=== PATIENT | male | born 1955 | race Caucasian/White ===

== ENCOUNTER 2018-04-21 06:05 | Day surgery (SDC) | payer OTHER ==
[~2018-04-21] VITALS: Ht 182.9 cm; Wt 100.0 kg
[~2018-04-21 06:05] MED LIST: ASPI81CH PO; ATOR20 PO; DOCU100 PO; ENOX40I SC; HYDMOR2 PO; METO25ER PO; Metoprolol Tart25 MG PO; NAPR220 PO; OMEP20ER PO; Singulair10 MG; XARELTO20 MG PO
== END 2018-04-21 11:00 | disposition home or self-care (01) ==
LOC: MHTC 06:05
DX: R07.9 Chest pain, unspecified (principal); R94.39 Abnormal result of other cardiovascular function study
CPT/HCPCS: 93458; 99152; 99153; C1769; C1894; J1644; J2250; J3010; J7030; Q9967

== ENCOUNTER 2018-04-29 19:23 | Emergency (ER) | payer OTHER ==
[~2018-04-29] VITALS: Ht 188 cm; Wt 99.8 kg
[2018-04-29 19:55] LABS: BASOPHILS ABSOLUTE AUTO 0.03 K/mm3 (0.00-0.23); BASOPHILS PERCENT AUTO 0 % (0-2); EOSINOPHILS ABSOLUTE AUTO 0.07 K/mm3 (0.00-0.68); EOSINOPHILS PERCENT AUTO 1 % (0-6); Hematocrit 41.7 % (37.0-53.0); Hemoglobin 14.8 g/dL (13.5-17.5); IMMATURE GRAN ABSOLUTE AUTO 0.02 K/mm3 (0.00-0.10); IMMATURE GRAN PERCENT AUTO 0 % (0-1); LYMPHOCYTES ABSOLUTE AUTO 2.14 K/mm3 (0.84-5.20); LYMPHOCYTES PERCENT AUTO 30 % (21-46); MONOCYTES ABSOLUTE AUTO 0.33 K/mm3 (0.16-1.47); MONOCYTES PERCENT AUTO 5 % (4-13); Mean Corpuscular HGB 33.9 pg (26.0-34.0); Mean Corpuscular HGB Conc 35.5 g/dL (31.5-36.5); Mean Platelet Volume 10.3 fL (9.1-12.4); NEUTROPHILS ABSOLUTE AUTO 4.64 K/mm3 (1.96-9.15); NEUTROPHILS PERCENT AUTO 64 % (41-73); Platelet Count 229 K/mm3 (150-400); RDW Coefficient Variation 12.6 % (11.7-14.2); RDW Standard Deviation 44.3 fL (35.1-46.3); Red Blood Cell Count 4.37 M/mm3 (4.30-5.90); White Blood Cell Count 7.23 K/mm3 (4.00-11.30)
[2018-04-29 19:56] LABS: Mean Corpuscular Volume 95 fL (80-100)
[2018-04-29 20:24] LABS: Alanine Aminotransfer (ALT/SGP 32 U/L (12-78); Albumin, Blood 4.3 g/dL (3.4-5.0); Albumin/Globulin Ratio 1.2 (0.8-1.8); Alk Phos 80 U/L (50-136); Anion Gap 9 mmol/L (6-16); Aspartate Aminotrans (AST/SGOT 14 U/L (12-37); Blood Urea Nitrogen 11 mg/dL (8-24); Bun/Creatinine Ratio 11.6 (12.0-20.0); CO2, Blood 24 mmol/L (21-32); Chloride, Blood 105 mmol/L (98-108); Creatinine, Blood 0.95 mg/dL (0.60-1.20); Globulin, Blood 3.5 g/dL (2.2-4.0); Glomerular Filtration Rate >60 (60-); Glucose, Blood 135 mg/dL (70-99); Potassium, Blood 3.6 mmol/L (3.5-5.5); Sodium, Blood 138 mmol/L (136-145); Total Protein, Blood 7.8 g/dL (6.4-8.2); Troponin I <0.015 ng/mL (0.000-0.040)
[2018-04-29] MEDS ORDERED: Carafate1 GM/10 ML PO (22:08)
== END 2018-04-29 23:12 | disposition home or self-care (01) ==
LOC: ER 19:23
PROVIDERS: Emergency Medicine
DX: K21.9 Gastro-esophageal reflux disease without esophagitis (principal); Z79.899 Other long term (current) drug therapy; Z79.82 Long term (current) use of aspirin; I48.91 Unspecified atrial fibrillation
CPT/HCPCS: 71046; 76705; 80053; 83690; 83880; 84484; 85025; 93005; 93010; 96374; 99284-25; C9113

== ENCOUNTER → 2018-11-16 | Outpatient (CLI) | payer OTHER ==
[~2018-11-16] MED LIST changes: +Carafate1 GM/10 ML PO; -OMEP20ER PO; +OMEPRAZOLE MAGN20 MG PO
== END | disposition home or self-care (01) ==
LOC: LAB SHORT 15:54 → LAB EV 15:54
DX: R35.0 Frequency of micturition (principal)
CPT/HCPCS: 87086

== ENCOUNTER 2020-06-29 23:22 | Emergency (ER) | payer OTHER ==
[~2020-06-29] VITALS: Ht 188 cm; Wt 99.8 kg
[2020-06-29] MEDS ORDERED: MELOXICAM 15 MG (23:31)
[2020-06-29] MEDS ORDERED: MONT10T (23:31)
[2020-06-30 00:13] LABS: BASOPHILS ABSOLUTE AUTO 0.07 K/mm3 (0.00-0.23); BASOPHILS PERCENT AUTO 1 % (0-2); EOSINOPHILS PERCENT AUTO 2 % (0-6); Hematocrit 41.1 % (37.0-53.0); Hemoglobin 14.7 g/dL (13.5-17.5); IMMATURE GRAN ABSOLUTE AUTO 0.02 K/mm3 (0.00-0.10); IMMATURE GRAN PERCENT AUTO 0 % (0-1); LYMPHOCYTES ABSOLUTE AUTO 2.44 K/mm3 (0.84-5.20); LYMPHOCYTES PERCENT AUTO 26 % (21-46); MONOCYTES ABSOLUTE AUTO 0.64 K/mm3 (0.16-1.47); MONOCYTES PERCENT AUTO 7 % (4-13); Mean Corpuscular HGB 33.3 pg (26.0-34.0); Mean Corpuscular HGB Conc 35.8 g/dL (31.5-36.5); Mean Corpuscular Volume 93 fL (80-100); NEUTROPHILS ABSOLUTE AUTO 5.98 K/mm3 (1.96-9.15); NEUTROPHILS PERCENT AUTO 64 % (41-73); Platelet Count 272 K/mm3 (150-400); RDW Coefficient Variation 12.6 % (11.7-14.2); Red Blood Cell Count 4.42 M/mm3 (4.30-5.90); White Blood Cell Count 9.35 K/mm3 (4.00-11.30)
[2020-06-30 00:31] LABS: Alanine Aminotransfer (ALT/SGP 33 U/L (12-78); Albumin, Blood 3.9 g/dL (3.4-5.0); Albumin/Globulin Ratio 1.1 (0.8-1.8); Alk Phos 86 U/L (50-136); Anion Gap 6 mmol/L (6-16); Aspartate Aminotrans (AST/SGOT 18 U/L (12-37); Bilirubin, Total 0.8 mg/dL (0.1-1.0); Blood Urea Nitrogen 14 mg/dL (8-24); Bun/Creatinine Ratio 13.3 (12.0-20.0); CO2, Blood 27 mmol/L (21-32); Calcium, Blood 9.1 mg/dL (8.5-10.1); Chloride, Blood 106 mmol/L (98-108); Creatinine, Blood 1.05 mg/dL (0.60-1.20); Globulin, Blood 3.5 g/dL (2.2-4.0); Glomerular Filtration Rate >60 (60-); Glucose, Blood 112 mg/dL (70-99); Potassium, Blood 3.7 mmol/L (3.5-5.5); Sodium, Blood 139 mmol/L (136-145); Total Protein, Blood 7.4 g/dL (6.4-8.2); Troponin I <0.015 ng/mL (0.000-0.040)
== END 2020-06-30 02:35 | disposition home or self-care (01) ==
LOC: ER 23:22
PROVIDERS: Emergency Medicine
DX: M19.012 Primary osteoarthritis, left shoulder (principal); Z79.899 Other long term (current) drug therapy
CPT/HCPCS: 71046; 80053; 83690; 83880; 84484; 85025; 93005; 93010; 96374; 96375; 99284-25; A9270; J1885; J2405; J7030

== ENCOUNTER 2021-04-05 06:08 | Day surgery (SDC) | payer OTHER ==
[~2021-04-05] VITALS: Ht 188 cm; Wt 95.9 kg
[~2021-04-05 06:08] MED LIST changes: +MELOXICAM 15 MG; +MONT10T PO
--- NOTE | 2021-04-05 07:19 | NUR ---
ADMITTED TO UNIT REPORT NPO SINCE MIDNIGHT. NO MEDS TAKEN TODAY. LUNGS CLEAR. NO GLASSES AR DENTURES OR PARTIALS NOTED. Ambulatory in Day Surgery, History, Chart, Medications and Allergies reviewed before start of procedure.
[2021-04-05] MEDS ORDERED: OXYC5 PO (14:56)
[2021-04-05] MEDS ORDERED: ASPI81CH PO (14:57)
[2021-04-05] MEDS ORDERED: SULTRIDS PO (14:58)
[2021-04-05] MEDS ORDERED: PROM25 PO (14:59)
--- NOTE | 2021-04-05 18:40 | NUR ---
DISCHARGE ALTHOUGH PT CLEARED THERAPY AFTER ONE SESSION THIS AFTERNOON, HE HAD VOMITED TWICE AT THAT POINT. IVF WERE RESTARTED POST THERAPY SESSION & ALLOWED TO REST IN CHAIR. AFTER A COUPLE HOURS ATTEMPTED BITES OF SALTINES & SIPS OF WATER, BUT 1 HOUR LATER VOMITED THAT. PT WAS ABLE TO VOID & WISHED TO GO HOME DISPITE N/V. MALI HAD BEEN CALLED IN EARLIER TO [facility]. DURING DC INSTRUCTIONS, STRESSED IMPORTANCE OF CALLING DR's OFFICE IF N/V PERSISTS OVERNIGHT DESPITE HAVING AN PPOINTMENT SATURDAY MORNING. POLAR PACK & DRSGS SENT HOME. ESCORTED OUT VIA W/C.
--- NOTE | 2021-04-06 11:01 | NUR ---
04/06/21 1101 Dian Hwang VERIFICATIONS: EDIT CHART.
[2021-04-10] MEDS ORDERED: XARELTO15 MG PO (17:55)
== END 2021-04-05 18:43 | disposition home or self-care (01) ==
LOC: ORSCMMR 06:08 → ORD 07:30 → SURS 10:18 → ORSCMMR 18:43
PROVIDERS: Orthopaedic Surgery
PROC: 8E0YXBZ Computer Assisted Procedure of Lower Extremity (ICD-10-PCS; principal; 2021-04-05 07:30)
PROC: 0SRC0J9 Replacement of Right Knee Joint with Synthetic Substitute, Cemented, Open Approach (ICD-10-PCS; principal; 2021-04-05 07:30)
DX: M17.11 Unilateral primary osteoarthritis, right knee (principal); J45.909 Unspecified asthma, uncomplicated; K21.9 Gastro-esophageal reflux disease without esophagitis; Z79.899 Other long term (current) drug therapy
CPT/HCPCS: 73560-RT; 97110; 97116; 97161; 97530; A9270; C1713; C1776; J0171; J0690; J0735; J1885; J2250; J2370; J2405; J2704; J2765; J2795; J3010; J3370; J7120

== ENCOUNTER → 2022-05-02 | Outpatient (CLI) | payer OTHER ==
[~2022-05-02] MED LIST changes: +OXYC5 PO; +PROM25 PO; +SULTRIDS PO; +XARELTO15 MG PO
[2022-05-02 12:32] LABS: BASOPHILS ABSOLUTE AUTO 0.06 K/mm3 (0.00-0.23); BASOPHILS PERCENT AUTO 1 % (0-2); EOSINOPHILS ABSOLUTE AUTO 0.08 K/mm3 (0.00-0.68); EOSINOPHILS PERCENT AUTO 1 % (0-6); Hematocrit 42.4 % (37.0-53.0); Hemoglobin 15.2 g/dL (13.5-17.5); IMMATURE GRAN ABSOLUTE AUTO 0.01 K/mm3 (0.00-0.10); IMMATURE GRAN PERCENT AUTO 0 % (0-1); LYMPHOCYTES PERCENT AUTO 28 % (21-46); MONOCYTES ABSOLUTE AUTO 0.32 K/mm3 (0.16-1.47); MONOCYTES PERCENT AUTO 5 % (4-13); Mean Corpuscular HGB 33.8 pg (26.0-34.0); Mean Corpuscular HGB Conc 35.8 g/dL (31.5-36.5); Mean Corpuscular Volume 94 fL (80-100); Mean Platelet Volume 9.8 fL (9.1-12.4); NEUTROPHILS ABSOLUTE AUTO 3.86 K/mm3 (1.96-9.15); NEUTROPHILS PERCENT AUTO 64 % (41-73); Platelet Count 258 K/mm3 (150-400); RDW Coefficient Variation 13.1 % (11.7-14.2); RDW Standard Deviation 44.7 fL (35.1-46.3); White Blood Cell Count 6.03 K/mm3 (4.00-11.30)
[2022-05-02 12:55] LABS: Albumin, Blood 4.3 g/dL (3.4-5.0); Albumin/Globulin Ratio 1.2 (0.8-1.8); Bilirubin, Total 0.8 mg/dL (0.1-1.0); Bun/Creatinine Ratio 8.4 (12.0-20.0); Calcium, Blood 9.5 mg/dL (8.5-10.1); Creatinine, Blood 0.95 mg/dL (0.60-1.20); Globulin, Blood 3.7 g/dL (2.2-4.0)
== END | disposition home or self-care (01) ==
LOC: LAB SHORT 12:26 → LAB 12:26
PROVIDERS: Physician Assistant Medical
DX: R07.9 Chest pain, unspecified (principal)
CPT/HCPCS: 80053; 83690; 84484; 85025; 85379

== ENCOUNTER 2023-04-02 10:40 | Day surgery (SDC) | payer OTHER ==
[~2023-04-02] VITALS: Ht 188 cm; Wt 95.3 kg
[2023-04-02 12:55] VITALS: BP 105/72
== END 2023-04-02 12:48 | disposition home or self-care (01) ==
LOC: ORSCSDS 10:40
PROVIDERS: Internal Medicine Gastroenterology
PROC: 0DB78ZX Excision of Stomach, Pylorus, Via Natural or Artificial Opening Endoscopic, Diagnostic (ICD-10-PCS; principal; 2023-04-02 12:00)
PROC: 0DBN8ZX Excision of Sigmoid Colon, Via Natural or Artificial Opening Endoscopic, Diagnostic (ICD-10-PCS; principal; 2023-04-02 12:00)
PROC: 0DB98ZX Excision of Duodenum, Via Natural or Artificial Opening Endoscopic, Diagnostic (ICD-10-PCS; principal; 2023-04-02 12:00)
DX: R10.32 Left lower quadrant pain (principal); R10.13 Epigastric pain; K31.7 Polyp of stomach and duodenum; K63.5 Polyp of colon; K57.30 Diverticulosis of large intestine without perforation or abscess without bleeding; K64.4 Residual hemorrhoidal skin tags; E78.5 Hyperlipidemia, unspecified; N40.0 Benign prostatic hyperplasia without lower urinary tract symptoms; I48.0 Paroxysmal atrial fibrillation
CPT/HCPCS: 88305; 88342; J2704; J7120

== ENCOUNTER 2024-03-14 16:02 | Emergency (ER) | payer OTHER ==
[~2024-03-14] VITALS: Ht 188 cm; Wt 95.2 kg
[2024-03-14 17:16] LABS: BASOPHILS ABSOLUTE AUTO 0.03 K/mm3 (0.00-0.23); BASOPHILS PERCENT AUTO 0 % (0-2); EOSINOPHILS PERCENT AUTO 0 % (0-6); Hematocrit 40.7 % (37.0-53.0); Hemoglobin 14.9 g/dL (13.5-17.5); IMMATURE GRAN ABSOLUTE AUTO 0.08 K/mm3 (0.00-0.10); IMMATURE GRAN PERCENT AUTO 1 % (0-1); LYMPHOCYTES PERCENT AUTO 5 % (21-46); MONOCYTES ABSOLUTE AUTO 0.55 K/mm3 (0.16-1.47); MONOCYTES PERCENT AUTO 4 % (4-13); Mean Corpuscular HGB 33.9 pg (26.0-34.0); Mean Corpuscular HGB Conc 36.6 g/dL (31.5-36.5); Mean Corpuscular Volume 93 fL (80-100); Mean Platelet Volume 10.2 fL (9.1-12.4); NEUTROPHILS ABSOLUTE AUTO 11.68 K/mm3 (1.96-9.15); NEUTROPHILS PERCENT AUTO 90 % (41-73); Platelet Count 185 K/mm3 (150-400); RDW Coefficient Variation 12.7 % (11.7-14.2); RDW Standard Deviation 43.9 fL (35.1-46.3); Red Blood Cell Count 4.39 M/mm3 (4.30-5.90); White Blood Cell Count 12.94 K/mm3 (4.00-11.30)
[2024-03-14 17:37] LABS: Albumin, Blood 3.9 g/dL (3.4-5.0); Bilirubin, Total 1.9 mg/dL (0.1-1.0); Bun/Creatinine Ratio 13.7 (12.0-20.0); Calcium, Blood 9.2 mg/dL (8.5-10.1); Creatinine, Blood 1.02 mg/dL (0.60-1.20); Globulin, Blood 3.8 g/dL (2.2-4.0); Potassium, Blood 3.6 mmol/L (3.5-5.5); Total Protein, Blood 7.7 g/dL (6.4-8.2)
[2024-03-14] MEDS ORDERED: TAMSULOSIN HCL0.4 M1 PO (17:54)
[2024-03-14] MEDS ORDERED: Ondansetron HCl 2 MG / ML 2ML Vial IV ONE (17:55)
[2024-03-14] MEDS ORDERED: NS 1,000 ML IV SCH (17:55)
[2024-03-14] MEDS ORDERED: Ketorolac Tromethamine 30mg Vial IV ONE (17:55)
[2024-03-14 18:35] LABS: Source, Urine Clean Catch
[2024-03-14 18:41] LABS: Appearance, Urine Cloudy (Clear); Bilirubin, Urine Neg (Neg); Blood, Urine 2+ (Neg); Color, Urine Amber (P-Yellow); Glucose Qualitative, Urine Neg (Neg); Ketones, Urine 1+ (Neg); Leukocyte Esterase, Urine 3+ (Neg); Nitrite, Urine Pos (Neg); Protein, Urine 2+ (Neg); Specific Gravity, Urine 1.025 (1.003-1.022); Urobilinogen, Urine NORM (Normal)
[2024-03-14 18:46] LABS: CORONAVIRUS COVID-19 AG Negative (NEGATIVE); INFLUENZA A AG Negative (NEGATIVE); INFLUENZA B AG Negative (NEGATIVE)
[2024-03-14 18:49] LABS: Bacteria Many /hpf; Red Blood Cells, Urine 0-2 /hpf (0-2); Squamous Epithelial Cells Not Seen /hpf (Few); White Blood Cells, Urine 50-100 /hpf (0-5)
[2024-03-14] MEDS ORDERED: AMOCLA875 PO (19:34)
[2024-03-14] MEDS ORDERED: Amoxicillin/Clavulanate K 875 MG Tab PO ONE (19:35)
[2024-03-14 19:58] VITALS: BP 117/58
== END 2024-03-14 19:59 | disposition home or self-care (01) ==
LOC: ER 16:02
PROVIDERS: Physician Assistant
DX: N39.0 Urinary tract infection, site not specified (principal); Z79.899 Other long term (current) drug therapy; Z11.52 Encounter for screening for COVID-19
CPT/HCPCS: 80053; 81001; 85025; 87077; 87086; 87186; 87428-QW; 93005; 93010; 96361; 96374; 99283-25; A9270; J1885; J2405; J7030

== ENCOUNTER → 2024-03-20 | Outpatient (CLI) | payer OTHER ==
[~2024-03-20] MED LIST changes: +AMOCLA875 PO; +BACTRIM DS TAB1 EAC6 PO; +TAMSULOSIN HCL0.4 M1 PO; +VISBIOME 112.51 EACH PO
[2024-03-20 08:15] LABS: BASOPHILS ABSOLUTE AUTO 0.03 K/mm3 (0.00-0.23); BASOPHILS PERCENT AUTO 1 % (0-2); EOSINOPHILS ABSOLUTE AUTO 0.11 K/mm3 (0.00-0.68); EOSINOPHILS PERCENT AUTO 2 % (0-6); Hematocrit 40.3 % (37.0-53.0); Hemoglobin 14.1 g/dL (13.5-17.5); Mean Corpuscular HGB 32.8 pg (26.0-34.0); Mean Corpuscular Volume 94 fL (80-100); Mean Platelet Volume 9.9 fL (9.1-12.4); Platelet Count 234 K/mm3 (150-400); RDW Coefficient Variation 12.9 % (11.7-14.2); RDW Standard Deviation 44.5 fL (35.1-46.3); White Blood Cell Count 6.24 K/mm3 (4.00-11.30)
[2024-03-20 08:25] LABS: Albumin, Blood 3.4 g/dL (3.4-5.0); Albumin/Globulin Ratio 0.8 (0.8-1.8); Bun/Creatinine Ratio 10.4 (12.0-20.0); Calcium, Blood 8.8 mg/dL (8.5-10.1); Creatinine, Blood 1.06 mg/dL (0.60-1.20); Globulin, Blood 4.2 g/dL (2.2-4.0); Potassium, Blood 3.7 mmol/L (3.5-5.5); Total Protein, Blood 7.6 g/dL (6.4-8.2)
[2024-03-20 08:30] LABS: IMMATURE GRAN ABSOLUTE AUTO 0.09 K/mm3 (0.00-0.10); IMMATURE GRAN PERCENT AUTO 1 % (0-1); LYMPHOCYTES ABSOLUTE AUTO 2.14 K/mm3 (0.84-5.20); LYMPHOCYTES PERCENT AUTO 34 % (21-46); MONOCYTES ABSOLUTE AUTO 0.52 K/mm3 (0.16-1.47); MONOCYTES PERCENT AUTO 8 % (4-13); NEUTROPHILS ABSOLUTE AUTO 3.35 K/mm3 (1.96-9.15); NEUTROPHILS PERCENT AUTO 54 % (41-73)
== END ==
LOC: LAB 08:10 → LAB SHORT 08:10
PROVIDERS: Family Medicine
DX: R53.1 Weakness (principal)
CPT/HCPCS: 80053; 85025

== ENCOUNTER 2024-03-29 05:26 | Inpatient (IN) | payer OTHER ==
[~2024-03-29] VITALS: Ht 188 cm; Wt 95.4 kg
[~2024-03-29 05:26] MED LIST changes: -BACTRIM DS TAB1 EAC6 PO; -VISBIOME 112.51 EACH PO
[2024-03-29 07:42] LABS: BASOPHILS ABSOLUTE AUTO 0.06 K/mm3 (0.00-0.23); BASOPHILS PERCENT AUTO 0 % (0-2); EOSINOPHILS ABSOLUTE AUTO 0.01 K/mm3 (0.00-0.68); EOSINOPHILS PERCENT AUTO 0 % (0-6); Hematocrit 42.7 % (37.0-53.0); Hemoglobin 15.3 g/dL (13.5-17.5); IMMATURE GRAN ABSOLUTE AUTO 0.09 K/mm3 (0.00-0.10); IMMATURE GRAN PERCENT AUTO 1 % (0-1); LYMPHOCYTES ABSOLUTE AUTO 1.71 K/mm3 (0.84-5.20); LYMPHOCYTES PERCENT AUTO 9 % (21-46); MONOCYTES ABSOLUTE AUTO 0.81 K/mm3 (0.16-1.47); MONOCYTES PERCENT AUTO 4 % (4-13); Mean Corpuscular HGB Conc 35.8 g/dL (31.5-36.5); Mean Corpuscular Volume 92 fL (80-100); Mean Platelet Volume 9.3 fL (9.1-12.4); NEUTROPHILS ABSOLUTE AUTO 16.63 K/mm3 (1.96-9.15); NEUTROPHILS PERCENT AUTO 86 % (41-73); Platelet Count 436 K/mm3 (150-400); RDW Coefficient Variation 12.7 % (11.7-14.2); RDW Standard Deviation 43.4 fL (35.1-46.3); Red Blood Cell Count 4.63 M/mm3 (4.30-5.90); White Blood Cell Count 19.31 K/mm3 (4.00-11.30)
[2024-03-29] MEDS ORDERED: Lidocaine 2% Jelly Uro-Jet UR ONE (07:45)
[2024-03-29 08:01] LABS: Albumin, Blood 4.2 g/dL (3.4-5.0); Bilirubin, Total 1.2 mg/dL (0.1-1.0); Bun/Creatinine Ratio 15.3 (12.0-20.0); Calcium, Blood 10.1 mg/dL (8.5-10.1); Creatinine, Blood 0.92 mg/dL (0.60-1.20); Globulin, Blood 4.4 g/dL (2.2-4.0); Potassium, Blood 3.9 mmol/L (3.5-5.5); Total Protein, Blood 8.6 g/dL (6.4-8.2)
[2024-03-29 08:20] LABS: Source, Urine Clean Catch
[2024-03-29 08:37] LABS: Appearance, Urine Hazy (Clear); Bilirubin, Urine Neg (Neg); Blood, Urine 5+ (Neg); Color, Urine Yellow (P-Yellow); Glucose Qualitative, Urine Neg (Neg); Ketones, Urine Neg (Neg); Leukocyte Esterase, Urine 2+ (Neg); Nitrite, Urine Pos (Neg); Protein, Urine Neg (Neg); Urobilinogen, Urine NORM (Normal)
[2024-03-29 08:58] LABS: Bacteria Few /hpf; Squamous Epithelial Cells Rare /hpf (Few)
[2024-03-29] MEDS ORDERED: CefTRIAXone Sodium 1,000 MG in NS 100 ML IV ONE (09:40)
[2024-03-29] MEDS ORDERED: FLU VACC TS2024-25(6MOS UP)/PF 45 MCG/0.5 ML SYRINGE IM ONE (12:10)
[2024-03-29] MEDS ORDERED: Ondansetron 4 MG TAB PO PRN (12:15)
[2024-03-29] MEDS ORDERED: NS 1,000 ML IV SCH (15:00)
[2024-03-29 15:36] VITALS: BP 125/73
--- NOTE | 2024-03-29 17:02 | NUR ---
SHIFT SUMMARY: PT ADMITTED TO ROOM 328. REPORT RECEIVED FROM KATTY MOISE. PT ARRIVED VIA GURNEY. HE IS AWAKE A/O X 4 ABLE TO ANSWER QUESTIONS APPROPRIATELY. PLEASANT AND COOPERATIVE. PT REPORTS PAIN 2/10 TO LOWER BACK AND ABD AND REPORTS IT IS TOLERABLE DENIES NEED FOR PAIN MEDICATIONS. YEE CATHETER IN PLACE PATENT AND DRAINING CLEAR YELLOW URINE. PT ORIENTED TO ROOM, CALL LIGHT MEDICAL FLOOR. PT REQUESTED TO CALL FOR ASSISTANCE WITH AMBULATION DUE TO IV LINE AND YEE CATHETER. PT V/U. BED IN LOW POSITION. CALL LIGHT IN REACH. PRESENT. PT/ DENY FURTHER QUESTIONS OR NEEDS.
[2024-03-29] MEDS ORDERED: Tamsulosin HCl 0.4 MG Cap PO SCH ×2 (18:00→21:00)
[2024-03-29 20:39] VITALS: BP 115/66
[2024-03-29] MEDS ORDERED: Montelukast Sodium 10 MG Tab PO SCH (21:00)
[2024-03-30 05:51] LABS: BASOPHILS ABSOLUTE AUTO 0.06 K/mm3 (0.00-0.23); BASOPHILS PERCENT AUTO 1 % (0-2); EOSINOPHILS ABSOLUTE AUTO 0.08 K/mm3 (0.00-0.68); EOSINOPHILS PERCENT AUTO 1 % (0-6); Hematocrit 38.6 % (37.0-53.0); Hemoglobin 13.4 g/dL (13.5-17.5); IMMATURE GRAN ABSOLUTE AUTO 0.03 K/mm3 (0.00-0.10); IMMATURE GRAN PERCENT AUTO 0 % (0-1); LYMPHOCYTES ABSOLUTE AUTO 2.48 K/mm3 (0.84-5.20); LYMPHOCYTES PERCENT AUTO 32 % (21-46); MONOCYTES ABSOLUTE AUTO 0.66 K/mm3 (0.16-1.47); MONOCYTES PERCENT AUTO 8 % (4-13); Mean Corpuscular HGB 33.3 pg (26.0-34.0); Mean Corpuscular HGB Conc 34.7 g/dL (31.5-36.5); Mean Corpuscular Volume 96 fL (80-100); Mean Platelet Volume 9.9 fL (9.1-12.4); NEUTROPHILS ABSOLUTE AUTO 4.52 K/mm3 (1.96-9.15); NEUTROPHILS PERCENT AUTO 58 % (41-73); Platelet Count 324 K/mm3 (150-400); RDW Coefficient Variation 12.9 % (11.7-14.2); RDW Standard Deviation 45.6 fL (35.1-46.3); Red Blood Cell Count 4.03 M/mm3 (4.30-5.90); White Blood Cell Count 7.83 K/mm3 (4.00-11.30)
[2024-03-30] MEDS ORDERED: Omeprazole 20 MG CapCR PO SCH (06:00)
[2024-03-30 06:48] LABS: Albumin, Blood 3.3 g/dL (3.4-5.0); Albumin/Globulin Ratio 0.9 (0.8-1.8); Bilirubin, Total 1.1 mg/dL (0.1-1.0); Bun/Creatinine Ratio 12.2 (12.0-20.0); Calcium, Blood 9.1 mg/dL (8.5-10.1); Creatinine, Blood 0.9 mg/dL (0.60-1.20); Globulin, Blood 3.8 g/dL (2.2-4.0); Magnesium, Blood 2.2 mg/dL (1.6-2.4); Potassium, Blood 4.1 mmol/L (3.5-5.5); Total Protein, Blood 7.1 g/dL (6.4-8.2)
[2024-03-30 07:44] VITALS: BP 115/71
[2024-03-30] MEDS ORDERED: Enoxaparin 40 MG/0.4 ML SYR SC SCH (09:00)
[2024-03-30] MEDS ORDERED: CefTRIAXone Sodium 1,000 MG in NS 100 ML IV SCH (09:00)
[2024-03-30] MEDS ORDERED: Montelukast Sodium 10 MG Tab PO SCH (09:00)
[2024-03-30 16:03] VITALS: BP 112/72
--- NOTE | 2024-03-30 16:56 | NUR ---
SHIFT SUMMARY PT A/Ox4, COOPERATIVE AND PLEASANT. ABLE TO MAKE NEEDS KNOWN, USES CALL LIGHT APPROPRIATELY, AMBULATES INDEPENDENTLY IN ROOM. INDWELLING YEE CATHETER REMAINS PATENT AND DRAINING CLEAR YELLOW URINE. DRAINAGE BAG SWITCHED TO LEG BAG FOR SAFE AMBULATION AND DUE TO PT LIKELY BEING DISCHARGED WITH YEE. PT AND PT SPOUSE EDUCATED RE CARE OF YEE CATHETER, PT AND SPOUSE VERBALIZED UNDERSTANDING ON CLEANING AND MAINTAINING CATHETER. PT COMPLETED CATHETER CARE INDEPENDINGLY AFTER SHOWER WITH CATHETER CLOTHS. PT DENIES PAIN T/O SHIFT. VSS. ABX RECIEVED VIA IV THIS AM. PT CURRENTLY RESTING IN HOSPITAL BED WITH BED IN LOWEST POSITION AND CALL LIGHT WITHIN REACH, SPOUSE AT BEDSIDE.
[2024-03-30] MEDS ORDERED: Trimethoprim/Sulfamethoxazole DS Tab PO SCH (19:00)
[2024-03-30 19:49] VITALS: BP 107/71
[2024-03-30] MEDS ORDERED: Lactobacil 2-S.Thermo-Bifido 1 1 Cap PO SCH (21:00)
[2024-03-31 04:00] VITALS: BP 102/59
--- NOTE | 2024-03-31 05:43 | NUR ---
CARPENTER SUMMARY: PT A&O X4, MAKES NEEDS KNOWN. USES CALL LIGHT APPROPRIATELY. PLANNED D/C HOME WITH YEE CATHETER TODAY. YEE DRAINING CLEAR YELLOW URINE. BACTRIM STARTED AT 2127 ON 03/30/24. NO ADVERSE SIDE EFFECTS NOTED. PT INDEPENDEND IN ROOM. VSS. NO ACUTE CHANGES NOTED. BED IN LOWEST POSITION. CALL LIGHT IN REACH. CARES CONTINUE ORDERED.
[2024-03-31 06:30] LABS: BASOPHILS ABSOLUTE AUTO 0.05 K/mm3 (0.00-0.23); BASOPHILS PERCENT AUTO 1 % (0-2); EOSINOPHILS ABSOLUTE AUTO 0.13 K/mm3 (0.00-0.68); EOSINOPHILS PERCENT AUTO 2 % (0-6); Hematocrit 39.7 % (37.0-53.0); Hemoglobin 13.9 g/dL (13.5-17.5); IMMATURE GRAN ABSOLUTE AUTO 0.02 K/mm3 (0.00-0.10); IMMATURE GRAN PERCENT AUTO 0 % (0-1); LYMPHOCYTES ABSOLUTE AUTO 2.28 K/mm3 (0.84-5.20); LYMPHOCYTES PERCENT AUTO 29 % (21-46); MONOCYTES ABSOLUTE AUTO 0.71 K/mm3 (0.16-1.47); MONOCYTES PERCENT AUTO 9 % (4-13); Mean Corpuscular HGB 33.4 pg (26.0-34.0); Mean Corpuscular Volume 95 fL (80-100); NEUTROPHILS ABSOLUTE AUTO 4.66 K/mm3 (1.96-9.15); NEUTROPHILS PERCENT AUTO 59 % (41-73); Platelet Count 284 K/mm3 (150-400); RDW Coefficient Variation 12.7 % (11.7-14.2); RDW Standard Deviation 45.1 fL (35.1-46.3); Red Blood Cell Count 4.16 M/mm3 (4.30-5.90); White Blood Cell Count 7.85 K/mm3 (4.00-11.30)
[2024-03-31 07:02] LABS: Albumin, Blood 3.4 g/dL (3.4-5.0); Anion Gap 9 mmol/L (3-11); Blood Urea Nitrogen 13 mg/dL (8-24); Bun/Creatinine Ratio 13.1 (12.0-20.0); CO2, Blood 26 mmol/L (21-32); Chloride, Blood 106 mmol/L (98-108); Creatinine, Blood 0.99 mg/dL (0.60-1.20); Glomerular Filtration Rate 81 (60-); Glucose, Blood 99 mg/dL (70-99); Phosphorus, Blood 3.6 mg/dL (2.5-4.9); Potassium, Blood 4.4 mmol/L (3.5-5.5); Sodium, Blood 137 mmol/L (136-145)
[2024-03-31 07:21] VITALS: BP 105/65
[2024-03-31] MEDS ORDERED: VISBIOME 112.51 EACH PO (12:35)
[2024-03-31] MEDS ORDERED: BACTRIM DS TAB1 EAC6 PO (12:35)
--- NOTE | 2024-03-31 12:58 | NUR ---
DISCHARGE SUMMARY PT DISCHARGED FROM MEDICAL FLOOR ON 03/31/24 @ 1300. PT WALKED INDEPENDENTLY WITH SPOUSE TO VEHICLE, RN ESCORTED TO SECOND FLOOR ENTRANCE. PT DISCHARGED WITH INDWELLING YEE CATHETER IN PLACE, LEG BAG PLACED PRIOR TO PT DISCHARGING. EDUCATION ON CATHETER MANAGEMENT AND NEW RX PROVIDED. CATHETER EDUCATION COMPLETED VIA WRITTEN MATERIAL, VERBALLY, AND DEMONSTRATION. PT AND PT SPOUSE VERBALIZED UNDERSTANDING. EXTRA DRAINAGE BAG AND LEG DRAINAGE BED PROVIDED. INSTRUCTED PT TO FOLLOW UP WITH [facility] IN 1 WEEK, CALL SOM TO MAKE APPOINTMENT, ALSO INSTRUCTED TO AEROTRIANGULATION SPECIALIST RX TODAY. IV REMOVED AND SITE APPEARS WNL.
== END 2024-03-31 12:50 | disposition home or self-care (01) | DRG 872 ==
LOC: ER 05:26 → MEDS 12:13
PROVIDERS: Family Medicine; Student in an Organized Health Care Education/Training Program; ADMIT Internal Medicine
PROC: 3E03329 Introduction of Other Anti-infective into Peripheral Vein, Percutaneous Approach (ICD-10-PCS; principal; 2024-03-29)
PROC: 0T9B70Z Drainage of Bladder with Drainage Device, Via Natural or Artificial Opening (ICD-10-PCS; 2024-03-29)
DX: A41.9 Sepsis, unspecified organism (principal); E87.20 Acidosis, unspecified; N30.00 Acute cystitis without hematuria; N10 Acute pyelonephritis; Z96.652 Presence of left artificial knee joint; R65.20 Severe sepsis without septic shock; J32.9 Chronic sinusitis, unspecified; K21.9 Gastro-esophageal reflux disease without esophagitis; R33.8 Other retention of urine; N40.1 Benign prostatic hyperplasia with lower urinary tract symptoms; I48.91 Unspecified atrial fibrillation; I25.10 Atherosclerotic heart disease of native coronary artery without angina pectoris; Z86.19 Personal history of other infectious and parasitic diseases
CPT/HCPCS: 36415; 51702; 51798; 74177; 80053; 80069; 81001; 83605; 83735; 85025; 87040; 87086; 96365-59; 99285-25; A9270; J0696; J7030; Q9967

== ENCOUNTER → 2024-04-15 | Outpatient (CLI) | payer OTHER ==
[~2024-04-15] MED LIST changes: +BACTRIM DS TAB1 EAC6 PO; +VISBIOME 112.51 EACH PO
== END ==
LOC: LAB 08:55 → LAB SHORT 08:55
DX: R33.9 Retention of urine, unspecified (principal)
CPT/HCPCS: 87086